=== PATIENT | female | born 1965 | race Caucasian/White ===

== ENCOUNTER 2017-07-19 20:09 | Emergency (ER) | payer MEDICAID ==
[2017-07-19 21:17] LABS: PLATELET COUNT 283 x10^3mcL (130-400); RED CELL DISTRIBUTION WIDTH 14.3 % (11.5-14.5)
[2017-07-19 21:27] LABS: ALKALINE PHOSPHATASE 68 U/L (46-116); ALT/SGPT 32 U/L (14-59); AST/SGOT 29 U/L (15-37); BILIRUBIN TOTAL 0.2 mg/dL (0.20-1.00); CALCIUM 7.9 mg/dL (8.5-10.1); CARBON DIOXIDE 31.3 mmol/L (21-32); CHLORIDE SERUM 104 mmol/L (98-107); CREATININE SERUM 0.6 mg/dL (0.6-1.0); GFR1 > 60 mL/min; GLUCOSE SERUM 112 mg/dL (74-106); SODIUM SERUM 143 mmol/L (136-145); TOTAL PROTEIN, SERUM 6.6 g/dL (6.4-8.2)
[2017-07-19 21:28] LABS: ALBUMIN 3.2 g/dL (3.4-5.0)
[2017-07-19 21:30] LABS: POTASSIUM SERUM 2.8 mmol/L (3.5-5.1)
[2017-07-19 23:48] VITALS: BP 107/75
== END 2017-07-19 23:40 | disposition other institution (70) ==
LOC: ED 20:09
PROVIDERS: Emergency Medicine
DX: F10.129 Alcohol abuse with intoxication, unspecified (principal); E87.6 Hypokalemia; V43.02XA Car driver injured in collision with other type car in nontraffic accident, initial encounter; Y93.I9 Activity, other involving external motion; Y92.481 Parking lot as the place of occurrence of the external cause; Y99.8 Other external cause status
CPT/HCPCS: G0480; J3411; J3475; J3490; J7030; Q0092

== ENCOUNTER 2017-07-19 20:09 | Emergency (ER) | payer OTHER | END 2017-07-19 23:40 | disposition other institution (70) | LOC: ED 20:09 | DX: Z02.89 Encounter for other administrative examinations (principal) ==